=== PATIENT | male | born 1995 | race Caucasian/White ===

== ENCOUNTER 2016-06-17 22:00 | Emergency (ER) | payer SELFPAY ==
[~2016-06-17] VITALS: Ht 170.2 cm; Wt 70.0 kg
[2016-06-18 01:15] VITALS: BP 110/72
== END 2016-06-18 02:35 | disposition home or self-care (01) ==
LOC: ER 22:01
DX: J06.9 Acute upper respiratory infection, unspecified (principal); R51 Headache
CPT/HCPCS: 99283